=== PATIENT | male | born 1980 | race Caucasian/White ===

== ENCOUNTER 2024-09-18 06:32 | Emergency (ER) | payer BC ==
[~2024-09-18] VITALS: Ht 175.3 cm; Wt 79.5 kg
[~2024-09-18 06:32] MED LIST: NO HOME MEDS
[2024-09-18 06:36] VITALS: TEMP 97.4
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
[2024-09-18] MEDS: proparacaine 0.5% ophthalmic drops 15ml EACHEYE ONE (07:26)
[2024-09-18] MEDS: fluorescein sod 1mg ophthalmic strip RIGHTEYE ONE (07:26)
[2024-09-18] MEDS ORDERED: erythromycin ophthalmic ointment 1gm tube RIGHTEYE ONE (07:40)
[2024-09-18 07:57] VITALS: BP 144/73; PULSE 63; RESP 14; O2SAT 97
== END 2024-09-18 08:02 | disposition home or self-care (01) ==
LOC: ER 06:32
DX: S05.01XA Injury of conjunctiva and corneal abrasion without foreign body, right eye, initial encounter (principal); H11.31 Conjunctival hemorrhage, right eye; W22.8XXA Striking against or struck by other objects, initial encounter; Y93.89 Activity, other specified; Y92.89 Other specified places as the place of occurrence of the external cause; Y99.8 Other external cause status
CPT/HCPCS: 99283